=== PATIENT | female | born 2000 | race African-American/Black ===

== ENCOUNTER 2021-11-16 21:03 | Emergency (ER) | payer BC, SELFPAY ==
[2021-11-16 21:26] VITALS: BP 112/62; PULSE 86; RESP 16; TEMP 36.6; O2SAT 100
--- NOTE | 2021-11-17 00:14 | ED_ITS ---
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 Patient is concerned that her IUD might be displaced. Patient also states that she has noticed some thick discharge, is concerned that she might have a yeast infection or an STD. Related Data Allergies Allergy/AdvReac Type Severity Reaction Status Date / Time No Known Allergies Allergy Unverified 11/16/21 21:31 Review of Systems Review of Systems: CONSTITUTIONAL: Denies fever, chills, or sweats. EYES: Denies visual changes, redness, or discharge. ENT: Denies rhinorrhea, congestion, sore throat, or otalgia. CARDIOVASCULAR: Denies chest pain, palpitations, or edema. RESPIRATORY: Denies cough or dyspnea. GASTROINTESTINAL: Reports lower abdominal pain GENITOURINARY: Reports dysuria, vaginal discharge SKIN: Denies rash or itching. MUSCULOSKELETAL: Denies back pain, joint pain, or myalgia. NEUROLOGIC: Denies headache, numbness, dizziness, or weakness. PSYCHIATRIC: Denies anxiety or depression. Exam Narrative: Patient deferred to the examination Course Vital Signs Vital signs: Vital Signs Temperature 36.6 C 11/16/21 21:26 Pulse Rate 86 11/16/21 21:26 Respiratory Rate 16 11/16/21 21:26 Blood Pressure 112/62 11/16/21 21:26 Pulse Oximetry 100 11/16/21 21:26 Temperature 36.6 C 11/16/21 21:26 Pulse Rate 86 11/16/21 21:26 Respiratory Rate 16 11/16/21 21:26 Blood Pressure 112/62 11/16/21 21:26 Pulse Oximetry 100 11/16/21 21:26 Discharge Plan Discharge Clinical Impression: Abdominal pain Qualifiers: Abdominal location: lower abdomen, unspecified Qualified Code(s): R10.30 - Lower abdominal pain, unspecified Patient Disposition: Home, Self-Care Condition: Stable Instructions: Antibiotic Form Follow-up/Referrals: Jase Hernandez MD [Physician] - PHYSICIAN,APPLICATION SECURITY DEVELOPER [Primary Care Provider] - Time of Disposition: 00:15
== END 2021-11-17 00:27 | disposition home or self-care (01) ==
PROVIDERS: Emergency Provider Nurse Practitioner Family
DX: R10.30 Lower abdominal pain, unspecified (principal); Z97.5 Presence of (intrauterine) contraceptive device
CPT/HCPCS: 99281

== ENCOUNTER 2023-09-25 12:33 | Emergency (ER) | payer SELFPAY ==
--- NOTE | ~2023-09-25 | US_ITS ---
EXAMINATION: US abdomen limited DATE: 09/25/2023 14:53 INDICATION: RUQ abdominal pain TECHNIQUE: Multiple grayscale and Doppler ultrasound images of limited portions of the abdomen were o btained. COMPARISON: None available. FINDINGS: The visualized portions of the pancreas are normal. The liver is normal with normal echogen icity and echotexture. No surface nodularity. Normal hepatopetal flow in the main portal vein. The ga llbladder is partially contracted, with borderline wall thickening likely secondary to contraction. N o abnormal wall thickening, pericholecystic fluid or stones. The common bile duct measures 2 mm. Ther e was no sonographic [place] sign. IMPRESSION: Normal limited abdominal ultrasound findings. Reviewed, dictated and finalized at location K.
[2023-09-25 12:34] VITALS: BP 107/60; PULSE 60; RESP 20; TEMP 36.5; O2SAT 99
--- NOTE | 2023-09-25 13:06 | ED.ABDPAIN ---
HPI - Abdominal Pain General Chief Complaint: Abdominal Pain Stated Complaint: abd pain Time Seen by Provider: 09/25/23 13:06 History of Present Illness HPI narrative: Patient is a healthy 23 year old female here with abdominal pain, nausea, vomiting, diarrhea since last night. She notes that her symptoms began around 12 am overnight last night. Patient states that she has had continued worsening abdominal pain since last night, it is located in the epigastrium, sharp, rates it a 10/10. She has taken nothing for her symptoms. She did attempt to go to an outside hospital, waited in the waiting room for a long period of time and eventually left without being seen. She notes that this morning she had multiple episodes of emesis and diarrhea. Denies any changes of her pain with food, denies any new restaurants. She is unsure if she has had any sick contacts, she works for [employer]. She denies any urinary symptoms, no vaginal bleeding or discharge. She just completed her last menstrual period about 1.5 weeks ago. No fever or chills. She does state that she felt something similar a couple of years ago, she was told it was gastritis. No cough or congestion. Related Data Allergies Allergy/AdvReac Type Severity Reaction Status Date / Time No Known Allergies Allergy Verified 09/25/23 12:39 Review of Systems Review of Systems: All systems reviewed & are unremarkable except as noted in HPI and below Exam Narrative: GENERAL: Well-appearing, well-nourished, and in no acute distress. HEAD: Normocephalic, atraumatic. EYES: PERRLA and EOMI. ENT: Nares clear. Mucous membranes moist. NECK: Supple. CHEST: Clear to auscultation. No respiratory distress. HEART: Regular rate and rhythm. Normal peripheral pulses. ABDOMEN: Soft, epigastric tenderness, no rebound of guarding, nondistended. No CVA tenderness. EXTREMITIES: Normal range of motion. No edema. SKIN: Warm, dry, no rash. NEURO: No focal deficits. Alert and oriented x3. PSYCH: Normal mood and affect. Course Course Emergency Course: Chart review performed. Patient here for upper abdominal pain. Triage vitals normal. One prior visit here on 11/16/21 here for abdominal pain and vaginal discharge. Patient seen evaluated, nontoxic appearing. She does have some epigastric abdominal tenderness, we will do basic labs, IV fluids, Protonix. Electrolytes within normal limits, stable hemoglobin at 14.2, no leukocytosis.. Electrolytes within normal limits, mild elevation in her AST and ALT, given location of pain will do ultrasound to evaluate for possible biliary pathology causing her symptoms and pain. UA suggestive of UTI. negative. Will start patient on Keflex. The results of pertinent diagnostic studies and exam findings were discussed. The patient?s provisional diagnosis and plan of care were discussed with the patient and present family. The patient and/or present family expressed understanding of the diagnosis and plan. The nurse was instructed to provide written instructions and appropriate follow-up information. The patient understands their need and responsibility to obtain additional follow-up as instructed. The risks of medications administered and prescribed were discussed with the patient and family present. Vital Signs Vital signs: Vital Signs Temperature 97.7 F 09/25/23 12:34 Pulse Rate 60 09/25/23 12:34 Respiratory Rate 20 09/25/23 12:34 Blood Pressure 107/60 09/25/23 12:34 Pulse Oximetry 99 09/25/23 12:34 Oxygen Delivery Room Air 09/25/23 12:34 Temperature 98.1 F 09/25/23 16:02 Pulse Rate 63 09/25/23 16:02 Respiratory Rate 16 09/25/23 16:02 Blood Pressure 108/62 09/25/23 16:02 Pulse Oximetry 100 09/25/23 16:02 Oxygen Delivery Room Air 09/25/23 12:34 MDM - Abdominal Pain Lab Data 09/25/23 13:31 09/25/23 13:31 Labs: Lab Results 09/25/23 09/25/23 Range/Units 13:31 13:43 WBC
[2023-09-25] MEDS: PANTOPRAZOLE SODIUM IV 40 MG VIAL IV PUSH (13:30)
[2023-09-25] MEDS: LACTATED RINGERS 1,000 ML 999 ML IV CONT (13:30)
[2023-09-25] MEDS: ONDANSETRON INJ 4 MG/2 ML VIAL IV PUSH (13:30)
[2023-09-25 13:37] LABS: Hematocrit 41.9 % (37.0-47.0); Hemoglobin 14.2 g/dL (12.0-15.0); Immature Granulocyte Absolute 0.01 K/mm3 (0.00-0.031); Immature Granulocyte Percent A 0.1 % (0-0.5); Lymphocytes Absolute Auto 0.71 K/mm3 (0.9-3.2); Lymphocytes Percent Auto 9.8 % (18.3-44.2); Mean Corpuscular HGB Conc 33.9 g/dl (32-36); Mean Corpuscular Hemoglobin 29.8 pg (26-34); Mean Corpuscular Volume 87.8 fl (80-100); Mean Platelet Volume 9.9 fl (7.4-10.4); Monocytes Absolute Auto 0.1 K/mm3 (0.1-0.6); Monocytes Percent Auto 1.5 % (2.6-8.5); Neutrophils Absolute Auto 6.4 K/mm3 (1.3-6.7); Neutrophils Percent Auto 88.6 % (45.5-73.1); Platelet Count Result 267 k/mm3 (150-375); Red Blood Count 4.77 M/mm3 (4.2-5.4); Red Cell Distribution Width 12.3 % (11.5-14.5); White Blood Count 7.2 K/mm3 (4.5-10.0)
[2023-09-25 13:46] LABS: Pregnancy On Board Control Positive; Urine Pregnancy Test Negative
[2023-09-25 13:49] LABS: Alanine Aminotransferase 62 U/L (6-35); Alkaline Phosphatase 67 U/L (38-126); Anion Gap 8 mmol/L (8-16); Aspartate Amino Transferase 64 U/L (14-36); Bilirubin,Total 0.7 mg/dL (0.2-1.3); Blood Urea Nitrogen 11 mg/dL (7-17); Calcium 10.3 mg/dL (8.4-10.2); Carbon Dioxide 26 mmol/L (22-30); Chloride 104 mmol/L (98-107); Estimated CRCL calculation 95 ml/min; Estimated Glomerular Filt Rate > 60; Glucose 127 mg/dL (65-110); Lipase 42 U/L (23-300); Sodium 138 mmol/L (137-145)
[2023-09-25 13:53] LABS: Appearance Urine Cloudy (Clear); Bacteria Urine 1+ /hpf; Bilirubin Urine Negative (Negative); Blood Urine Negative (Negative); Color Urine Dark Yellow (Yellow); Glucose Urine UA Negative (Negative); Ketones Urine 3+ mg/dL (Negative); Leukocyte Esterase Ur 2+ LEU/UL (Negative); Need Manual Microscopic Reviewed; Nitrate Urine Negative (Negative); Non Pathogenic Casts 0-2; Protein Urine 2+ mg/dL (Negative); Squamous Epithelial Cell Urine Few /hpf (Few); WBC Urine 21-50 /hpf (0-3); pH Urine >=9.0 (5.0-9.0)
[2023-09-25 13:54] LABS: Add Urine Microscopic? YES; Specific Grav Ur 1.038 (1.001-1.035)
[2023-09-25 14:24] LABS: Influenza A QL RT-PCR Negative (Negative); Influenza B QL RT-PCR Negative (Negative); RSV RNA, RT-PCR Negative (Negative); SARS-CoV-2 RNA PCR Negative (Negative)
[2023-09-25] MEDS: BELLADONNA ALK/PHENOB ELIX 10 ML, MAG HYDROX/ALUMINUM HYD/SIMETH 30 ML, LIDOCAINE HCL 2... PO (15:44)
[2023-09-25 16:02] VITALS: BP 108/62; PULSE 63; RESP 16; TEMP 36.7; O2SAT 100
== END 2023-09-25 16:24 | disposition home or self-care (01) ==
PROVIDERS: Emergency Medicine; Emergency Provider Student in an Organized Health Care Education/Training Program
DX: N39.0 Urinary tract infection, site not specified (principal); R10.13 Epigastric pain; Z20.822 Contact with and (suspected) exposure to COVID-19
CPT/HCPCS: 36415; 76705; 80053; 81025; 83690; 85025; 87086; 87088; 87637; 96361; 96374; 96375; 99284; A9270; C9113; J2405; J7120